=== PATIENT | male | born 1960 | race African-American/Black ===

== ENCOUNTER 2018-09-01 12:14 | Emergency (ER) | payer MEDICARE, MEDICAID ==
[~2018-09-01] VITALS: Ht 177.8 cm; Wt 80.0 kg
[2018-09-01] MEDS ORDERED: DOPAMINE 400MG PREMIX 250 ML IV ONE ×2 (13:02→13:45)
[2018-09-01] MEDS ORDERED: NOREPINEPHRINE 4MG/250ML PMX 250 ML IV ONE ×2 (13:04→13:45)
[2018-09-01] MEDS ORDERED: EPINEPHRINE 0.1MG/ML (1:10,000) 10ML SYR ONE ×2 (13:24→13:58)
[2018-09-01] MEDS ORDERED: CALCIUM CHLORIDE 1GM/10ML SYR IV ONE (13:58)
[2018-09-01] MEDS ORDERED: SODIUM BICARBONATE 7.5% 0.9 MEQ/ML 50ML SYR IV ONE (13:58)
[2018-09-01] MEDS ORDERED: MAGNESIUM SULFATE 4G IN WATER 100ML PREMIX IV ONE (13:58)
== END 2018-09-01 15:08 | disposition expired ==
LOC: ER 12:14
DX: I46.9 Cardiac arrest, cause unspecified (principal); I12.0 Hypertensive chronic kidney disease with stage 5 chronic kidney disease or end stage renal disease; E11.22 Type 2 diabetes mellitus with diabetic chronic kidney disease; N18.6 End stage renal disease; Z99.2 Dependence on renal dialysis
CPT/HCPCS: 31500; 92950; 92960; 93005; 99291; J1265; J3475; J3490